=== PATIENT | female | born 1975 | race Caucasian/White ===

== ENCOUNTER 2020-01-19 10:52 | Emergency (ER) | payer MEDICARE ==
[~2020-01-19] VITALS: Ht 154.9 cm; Wt 38.6 kg
[2020-01-19 11:05] VITALS: BP 119/65
[2020-01-19] MEDS ORDERED: ketorolac tromethamine 15mg/ml inj. IM ONE (13:10)
[2020-01-19] MEDS ORDERED: CYCL-1 PO (17:07)
[2020-01-19] MEDS ORDERED: HYDROcodone/acetaminophen 10/325mg tab PO ONE (17:40)
== END 2020-01-19 19:51 | disposition home or self-care (01) ==
LOC: ER 10:53
DX: M54.5 Low back pain (principal); N94.89 Other specified conditions associated with female genital organs and menstrual cycle; M25.552 Pain in left hip; R10.30 Lower abdominal pain, unspecified; Z88.0 Allergy status to penicillin; Z88.8 Allergy status to other drugs, medicaments and biological substances; Z79.899 Other long term (current) drug therapy
CPT/HCPCS: 72100; 72148; 73502; 74176; 99284; 99285